=== PATIENT | male | born 1960 | race African-American/Black ===

== ENCOUNTER 2018-01-03 14:18 | Emergency (ER) | payer MEDICAID, OTHER ==
[~2018-01-03] VITALS: Ht 185.4 cm; Wt 78.0 kg
[~2018-01-03 14:18] MED LIST: AMOX-424 PO; HYDR-1348 PO
[2018-01-03] MEDS ORDERED: KETOROLAC 60MG/2ML VIAL IM ONE (17:15)
[2018-01-03 17:47] VITALS: BP 106/69
== END 2018-01-03 19:56 | disposition home or self-care (01) ==
LOC: ER 14:18
DX: M79.661 Pain in right lower leg (principal); F17.200 Nicotine dependence, unspecified, uncomplicated
CPT/HCPCS: 73610; 96372; 99284; J1885; Z7610

== ENCOUNTER 2018-01-05 09:26 | Emergency (ER) | payer MEDICAID ==
[~2018-01-05] VITALS: Ht 185.4 cm; Wt 78.0 kg
[2018-01-05] MEDS ORDERED: VISCOUS LIDOCAINE 2% 15 ML UDC PO STA (10:33)
[2018-01-05] MEDS ORDERED: MAGNESIUM/ALUMINUM HYDROXIDE/SIMETHICONE 30ML UDC PO STA (10:33)
[2018-01-05 10:48] LABS: CLARITY URINE CLOUDY (CLEAR); COLOR URINE DARK YELLOW (YELLOW); KETONES URINE 1+ (NEGATIVE); LEUKOCYTE ESTERASE URINE TRACE (NEGATIVE); NITRITE URINE NEGATIVE (NEGATIVE); OCCULT BLOOD URINE 1+ (NEGATIVE); PROTEIN URINE 1+ (NEGATIVE); SPECIFIC GRAVITY URINE 1.024 (1.005-1.030)
[2018-01-05 11:52] LABS: HEMATOCRIT. 44.3 % (42.0-52.0); HEMOGLOBIN. 14.9 g/dL (14.0-18.0); MEAN CORPUSCULAR HEMOGLOBIN 30.8 pg (28.0-32.0); MEAN CORPUSCULAR VOLUME 91.9 fL (80.0-94.0); MEAN PLATELET VOLUME 8.4 fl (7.4-10.4); PLATELET 141 x1000/uL (130-400); RED BLOOD CELL COUNT 4.83 mill/uL (4.7-6.1); RED CELL DISTRIBUTION WIDTH 13.7 % (11.6-14.6)
[2018-01-05 11:57] LABS: PROTHROMBIN TIME 9.9 sec (9.1-11.1)
[2018-01-05 12:01] LABS: CHLORIDE 102 mEq/L (98-107)
[2018-01-05] MEDS ORDERED: LIDOCAINE HCL/PF 1% 10 MG/ML 5ML VIAL IJ ONE (12:45)
[2018-01-05] MEDS ORDERED: BACITRACIN ZINC OINT UDPKT TOP ONE (12:45)
[2018-01-05 13:02] LABS: PLATELET ESTIMATE NORMAL
[2018-01-05] MEDS ORDERED: PIPERACILLIN/TAZ 3.375G PREMIX 50 ML IV ONE (13:45)
[2018-01-05] MEDS ORDERED: PIPERACILLIN/TAZOBACTAM 3.375GM/50ML PREMIX IV ONE (13:45)
[2018-01-05] MEDS ORDERED: VANCOMYCIN 1 G PREMIX 200 ML IV SCH (13:45)
[2018-01-05 15:56] VITALS: BP 129/79
== END 2018-01-05 16:00 | disposition short-term general hospital (02) ==
LOC: ER 09:26
DX: M25.571 Pain in right ankle and joints of right foot (principal); F17.200 Nicotine dependence, unspecified, uncomplicated; R10.13 Epigastric pain; M79.89 Other specified soft tissue disorders; Z79.899 Other long term (current) drug therapy
CPT/HCPCS: 20605; 36415; 73610; 80053; 81003; 84550; 85025; 85610; 85651; 86140; 87070; 87077; 87205; 89050; 96365; 96366; 96368; 99285; J2543; J3370; J3490; Z7610